=== PATIENT | male | born 2000 | race Caucasian/White ===

== ENCOUNTER 2022-05-01 17:13 | Emergency (ER) | payer OTHER ==
[~2022-05-01] VITALS: Ht 180.3 cm; Wt 94.8 kg
[2022-05-03 07:12] LABS: HCV ANTIBODY Non Reactive (Non Reactive)
[2022-05-03 08:12] LABS: HIV AB/P24 AG SCREEN Non Reactive (Non Reactive)
== END 2022-05-01 18:25 | disposition home or self-care (01) ==
LOC: ER 17:13
PROVIDERS: Physician Assistant
DX: Z77.21 Contact with and (suspected) exposure to potentially hazardous body fluids (principal)
CPT/HCPCS: 36415; 84460; 86317; 86803; 87389